=== PATIENT | female | born 1990 | race Caucasian/White ===

== ENCOUNTER 2018-03-10 10:28 | Day surgery (SDC) | payer BC ==
[~2018-03-10 10:28] MED LIST: CEFAZOLIN 1 GM/50 ML (PMX) 50 ML IVPB; SOD CHLORIDE 0.9% 1,000 ML IV
[2018-03-10] MEDS ORDERED: NEOSTIGMINE 3 MG/3 ML SYRINGE ×2 (12:42→13:55)
[2018-03-10] MEDS ORDERED: PROPOFOL 20 ML (12:42)
[2018-03-10] MEDS ORDERED: ROCURONIUM 50 MG INJ (12:42)
[2018-03-10] MEDS ORDERED: CEFAZOLIN 1 GM INJ (12:42)
[2018-03-10] MEDS ORDERED: SUCCINYLCHOLINE CHLORIDE 100 MG/5 ML SYG IV (12:42)
[2018-03-10] MEDS ORDERED: LIDOCAINE 2% (SDV) 5 ML INJ (12:42)
[2018-03-10] MEDS ORDERED: GLYCOPYRROLATE 0.4 MG INJ ×2 (12:42→12:58)
[2018-03-10] MEDS ORDERED: MEPERIDINE /PF (100 MG/2 ML) AMPULE (12:43)
[2018-03-10] MEDS ORDERED: ONDANSETRON 4 MG INJ (12:58)
[2018-03-10] MEDS ORDERED: METOCLOPRAMIDE 10 MG INJ (12:58)
[2018-03-10] MEDS: BUPIVACAINE 0.25%/EPI (SDV) 30 ML INJ (13:10)
[2018-03-10] MEDS ORDERED: HYDROCODONE/APAP (5/325) TAB PO (14:00)
[2018-03-10] MEDS ORDERED: KETOROLAC 30 MG INJ IV (14:00)
[2018-03-10] MEDS ORDERED: ONDANSETRON 4 MG INJ IV ×2 (14:00→14:30)
[2018-03-10] MEDS ORDERED: morphine 2 MG INJ IV (14:00)
[2018-03-10] MEDS ORDERED: IBUPROFEN 600 MG TAB PO (14:00)
[2018-03-10] MEDS ORDERED: HYDROmorphONE 1 MG/5 ML IV SYRINGE IV ×3 (14:08→14:30)
[2018-03-10] MEDS: HYDROmorphONE 1 MG/5 ML IV SYRINGE IV (14:21)
[2018-03-10] MEDS ORDERED: LABETALOL HCL 20MG INJ IV (14:30)
[2018-03-10] MEDS ORDERED: MEPERIDINE 25 MG INJ IV (14:30)
[2018-03-10] MEDS ORDERED: DIPHENHYDRAMINE 50 MG INJ IV (14:30)
[2018-03-10] MEDS ORDERED: EPHEDrine SULFATE 50 MG/5 ML SYG IV (14:30)
[2018-03-10] MEDS ORDERED: OXYCODONE/ACETAMINOPHEN (5/325) TAB PO ×2 (14:30)
[2018-03-10] MEDS ORDERED: METOCLOPRAMIDE 10 MG INJ IV (14:30)
[2018-03-10] MEDS ORDERED: FENTAnyl 50 MCG/ML VIAL IV ×2 (14:30)
[2018-03-10] MEDS ORDERED: MIDAZOLAM 1 MG/ML 2 ML INJ IV (14:30)
[2018-03-10] MEDS ORDERED: hydrALAzine 20 MG INJ IV (14:30)
[2018-03-10] MEDS: FENTAnyl 50 MCG/ML VIAL IV (14:38)
[2018-03-10] MEDS: HYDROCODONE/APAP (5/325) TAB PO (16:43)
== END 2018-03-10 16:44 | disposition home or self-care (01) ==
LOC: SDS 10:28
DX: K80.10 Calculus of gallbladder with chronic cholecystitis without obstruction (principal)
CPT/HCPCS: 47562; 84703; 88304